=== PATIENT | female | born 1990 | race Caucasian/White ===

== ENCOUNTER 2019-01-26 16:56 | Emergency (ER) ==
[2019-01-26 17:21] VITALS: BP 122/58; TEMP 97.6; BMI 18.0
--- NOTE | 2019-01-26 17:39 | ED.PDOC ---
General Stated Complaint: Abdominal pain with repeated vomiting. Onset this am. Has had 6 episodes of emesis since onset without diarrhea. Indicating pain in in RUQ going through to back. Prev Tibal ligation . Additonal hx reveals patient has some type of hypercoagulable state. During her 2 previous 's developed acute Pulmonary Embolus in [id number] occuring during her . Supposed to be on coumadin but since moving to [place] from [place] has not established with PCP. (In addition states her children removed from her home due to her recurrent illness and advised she needed to seek medical care to stabilize her condition.) States her daughter has Sickle Cell illness believe transmitted from genetically from [place] father. Time Seen by Physician: 17:15 Mode of Arrival: Stretcher Information Source: Patient, EMT Exam Limitations: Clinical condition Seen Within Last 72 Hours for Same Complaint By: ED Nursing and Triage Documentation Reviewed and Agree: Yes Does patient meet sepsis criteria?: No <CLEMENTE ZULUAGA - Last Filed: 01/26/19 19:06> System Inflammatory Response Syndrome: Not Applicable <NASEEM BLEVINS - Last Filed: 01/26/19 20:26> ED Provider: Dr. NASEEM BLEVINS Chief Complaint: Abdominal Pain Sepsis Protocol: For patient's 13 years and over: Temp is 96.8 and below OR 101 and greater Pulse >90 BPM Resp >20/minute Acutely Altered Mental Status Are patient's symptoms suggestive of a new infection, such as: -Pneumonia -Skin, Soft Tissue -Endocarditis -UTI -Bone, Joint Infection -Implantable Device -Acute Abdominal Infection -Wound Infection -Meningitis -Blood Stream Catheter Infection -Unknown GI Complaint Exam - Abdominal Pain Complaint/Exam Onset: Sudden Duration: 20-30 min Symptoms Are: Still present Timing: Intermittent Initial Severity: Moderate Current Severity: Mild Location of Pain: Discrete, RUQ Radiates To: Reports: Back Character: Reports: Sharp, Burning Aggravating: Reports: Movement Alleviating: Reports: None Associated Signs and Symptoms: Reports: Nausea, Vomiting <CLEMENTE ZULUAGA - Last Filed: 01/26/19 19:06> Review of Systems - Review Of Systems Constitutional: Reports: No symptoms Eyes: Reports: No symptoms Ears, Nose, Mouth, Throat: Reports: No symptoms Respiratory: Reports: No symptoms Cardiac: Reports: No symptoms GI: Reports: Abdominal pain, Nausea, Vomiting. Denies: Diarrhea : Reports: No symptoms Musculoskeletal: Reports: No symptoms Skin: Reports: No symptoms Neurological: Reports: No symptoms Endocrine: Reports: No symptoms Hematologic/Lymphatic: Reports: No symptoms All Other Systems: Reviewed and Negative <NASEEM BLEVINS - Last Filed: 01/26/19 20:26> Past Medical History - Past Medical History Last Menstrual Period: last month - Social History Smoking Status: Never smoker Hx Substance Use: No Alcohol Screening: None <CLEMENTE ZULUAGA - Last Filed: 01/26/19 19:06> - Past Medical History Previously Healthy: Yes Endocrine: Reports: None Cardiovascular: Reports: None Respiratory: Reports: None Hematological: Reports: None Gastrointestinal: Reports: None Genitourinary: Reports: None Neuro/Psych: Reports: None Musculoskeletal: Reports: None Cancer: Reports: None Other Pertinent Past Medical History: PE x 2 - Surgical History General Surgical History: Reports: Tubal ligation - Family History Family History: Reports: None <NASEEM BLEVINS Last Filed: 01/26/19 20:26> Physical Exam - Physical Exam Appearance: Ill-appearing, Thin Ill-appearing: Mild Pain Distress: Moderate Eyes: CYNDY, EOMI, Conjunctiva clear Neck: Supple Skin: Warm, Dry Neurological: Alert, Oriented Psychiatric: Anxious <NASEEM BLEVINS Last Filed: 01/26/19 20:26> Interpretation - Radiology Interpretation Radiology Interpretation By: Radiologist Radiology Results: No acute changes (simple cyst, non obstructive stone.) Exam Interpreted: CT Scan <NASEEM BLEVINS Last Filed: 01/26/19 20:26> Re-Evaluation - Re-Evaluation Time of Re-Evaluation: 18:15 Status: Unchanged Vital Signs Stable: Yes Appearance: Other (writhing in pain RUQ/Midepigastrium) Lungs: Clear Skin: Warm and Dry Neuro: Alert and Oriented X3 CV: RRR <CLEMENTE ZULUAGA - Last Filed: 01/26/19 19:06> Physician Notification - Case Discussed Physician Notified: Dr Blevins-discussed case-assumes management Time of Notification: 19:00 <CLEMENTE ZULUAGA - Last Filed: 01/26/19 19:06> Critical Care Note - Critical Care Note Total Time (mins): 30 <NASEEM BLEVINS Last Filed: 01/26/19 20:26> Course - Course Hematology/Chemistry: 01/26/19 18:01 01/26/19 18:01 <CLEMENTE ZULUAGA - Last Filed: 01/26/19 19:06> - Course Hematology/Chemistry: 01/26/19 18:01 01/26/19 18:01 <NASEEM BLEVINS - Last Filed: 01/26/19 20:26> - Course Orders, Labs, Meds: Lab Review 01/26/19 01/26/19 01/26/19 18:01 18:01 18:01 WBC RBC Hgb Hct MCV MCH MCHC RDW Coeff of Cheryl Plt Count Immature Gran % (Auto) Neut % (Auto) Lymph % (Auto) [place] % (Auto) Eos % (Auto) Baso % (Auto) Immature Gran # (Auto) Neut # (Auto) Lymph # (Auto) [place] # (Auto) Eos # (Auto) Baso # (Auto) D-Dimer (Manual) 497.42 Sodium 142.8 Potassium 3.79 Chloride 106.0 Carbon Dioxide 17.7 L Anion Gap 22.89 BUN 8.4 Creatinine 0.60 Estimated GFR (MDRD) 119.00 BUN/Creatinine Ratio 14.00 Glucose 110.7 H Calcium 10.31 H Total Bilirubin 0.66 AST 24.2 ALT 15.3 Alkaline Phosphatase 91.7 Troponin I < 0.012 Total Protein 9.48 H Albumin 5.28 H Globulin 4.20 Albumin/Globulin Ratio 1.25 Lipase 31.4 Procalcitonin < 0.05 Serum , Qual 01/26/19 01/26/19 18:01 18:01 WBC 8.50 RBC 4.89 Hgb 13.8 Hct 42.8 MCV 87.5 MCH 28.2 MCHC 32.2 RDW Coeff of Cheryl 12.9 Plt Count 236 Immature Gran % (Auto) 0.5 Neut % (Auto) 85.6 Lymph % (Auto) 10.6 [place] % (Auto) 3.1 Eos % (Auto) 0.0 Baso % (Auto) 0.2 Immature Gran # (Auto) 0.0 Neut # (Auto) 7.3 H Lymph # (Auto) 0.9 [place] # (Auto) 0.3 L Eos # (Auto) 0.0 Baso # (Auto) 0.0 D-Dimer (Manual) Sodium Potassium Chloride Carbon Dioxide Anion Gap BUN Creatinine Estimated GFR (MDRD) BUN/Creatinine Ratio Glucose Calcium Total Bilirubin AST ALT Alkaline Phosphatase Troponin I Total Protein Albumin Globulin Albumin/Globulin Ratio Lipase Procalcitonin Serum , Qual Negative Orders Category Date Time Status IV [ED IV/MEDIPORT/POWERPORT] .ONCE EMERGENCY 01/26/19 17:44 Active CBC W/ AUTO DIFF Stat LAB 01/26/19 18:01 Completed CMP [COMPREHENSIVE METABOLIC PANEL] Stat LAB 01/26/19 18:01 Completed D-DIMER Stat LAB 01/26/19 18:01 Completed HCG QUALITATIVE [SERUM ] Stat LAB 01/26/19 18:01 Completed LIPASE Stat LAB 01/26/19 18:01 Completed PROCALCITONIN Stat LAB 01/26/19 18:01 Completed PROTEIN C ANTIGEN Stat LAB 01/26/19 19:25 Received PROTEIN IMMUNOELECTROPHORESIS Stat LAB 01/26/19 19:25 Received PROTEIN S ANTIGEN Stat LAB 01/26/19 19:25 Received SICKLE CELL PREP Stat LAB 01/26/19 19:25 Received TROPONIN I Stat LAB 01/26/19 18:01 Completed UA [URINALYSIS C & S IF INDICATED] Stat LAB 01/26/19 17:43 Uncollected URINE DRUG SCREEN (RAPID FOR ED) [DRUG SCREEN, URINE, LAB 01/26/19 17:43 Uncollected RAPID] Stat 0.9 % Sodium Chloride [Saline Flush] MEDS 01/26/19 17:42 Ordered 1 syr IVF PRN PRN Famotidine Inj [Pepcid] MEDS 01/26/19 18:13 Discontinued 20 mg IVP ONCE STA Nalbuphine HCl [Nubain] MEDS 01/26/19 18:14 Discontinued 10 mg IM ONCE STA Ondansetron HCl/Pf [Zofran 4 mg/2 ml] MEDS 01/26/19 18:09 Discontinued 4 mg IVP ONCE STA Sodium Chloride 0.9% [Sodium Chloride] 1,000 ml MEDS 01/26/19 17:[address] ABDOMEN/PELVIS WO CONTRAST Stat RADS 01/26/19 17:47 Completed Medications Generic Name Dose Route Start Last Admin Trade Name Freq PRN Reason Stop Dose Admin Sodium Chloride 1 syr 01/26/19 17:42 Saline Flush IVF PRN PRN To flush IV Discontinued Medications Generic Name Dose Route Start Last Admin Trade Name Freq PRN Reason Stop Dose Admin Famotidine 20 mg 01/26/19 18:13 01/26/19 18:24 Pepcid IVP 01/26/19 18:14 20 mg ONCE STA Administration Sodium Chloride 1,000 mls @ 500 mls/hr 01/26/19 17:45 01/26/19 18:10 Sodium Chloride IV 01/26/19 19:44 500 mls/hr BOLUS STA Administration Nalbuphine HCl 10 mg 01/26/19 18:14 01/26/19 18:27 Nubain IM 01/26/19 18:15 10 mg ONCE STA Administration Ondansetron HCl 4 mg 01/26/19 18:09 01/26/19 18:10 Zofran 4 Mg/2 Ml IVP 01/26/19 18:10 4 mg ONCE STA Administration Vital Signs: Temp Pulse Resp BP Pulse Ox 01/26/19 16:59 97.6 F 61 20 122/58 L 99 Departure <CLEMENTE ZULUAGA - Last Filed: 01/26/19 19:06> - Departure Time of Disposition: 20:24 Pt referred to PMD for follow-up: Yes IPMP verified?: No Disposition Discussed With: Patient, Family <NASEEM BLEVINS - Last Filed: 01/26/19 20:26> - Departure Disposition: HOME SELF-CARE Discharge Problem: Abdominal pain Cyclical vomiting with nausea Qualifiers: Vomiting Intractability: intractable Qualified Code(s): G43.A1 - Cyclical vomiting, intractable Instructions: Acute Abdominal Pain (ED), Cyclic Vomiting Syndrome (ED) Condition: Stable Additional Instructions: Push fluids Avoid Marijuana use as it may cause vomiting. Take Bentyl for cramps and zofran as needed for nausea and vomiting. Prescriptions: Dicyclomine HCl [Bentyl] 10 mg PO TID PRN #20 capsule PRN Reason: Abdominal Pain Ondansetron [Zofran Odt] 4 mg PO Q8H #12 tab.rapdis Allergies/Adverse Reactions: Allergies No Known Allergies Allergy (Unverified 01/26/19 17:08) Home Medications: Ambulatory Orders Dicyclomine HCl [Bentyl] 10 mg PO TID PRN #20 capsule 01/26/19 Ondansetron [Zofran Odt] 4 mg PO Q8H #12 tab.rapdis 01/26/19
[2019-01-26] MEDS ORDERED: SODIUM CHLORIDE 1,000 ML IV STA (17:45)
[2019-01-26] MEDS ORDERED: ZOFRAN 4 MG/2 ML IVP STA (18:09)
[2019-01-26] MEDS ORDERED: NUBAIN IM STA (18:14)
[2019-01-26] MEDS: PEPCID IVP STA ×2 (18:24→18:27)
--- NOTE | 2019-01-26 19:22 | CT ---
EXAM: CT of the abdomen and pelvis without contrast. HISTORY: Abdominal pain with nausea vomiting. PROCEDURE: Contiguous axial CT images of the abdomen and pelvis without contrast with coronal and sa gittal reformats. FINDINGS: The exam is limited without IV contrast. The liver, gallbladder, pancreas, spleen and adre nal glands are normal in appearance. There are nonobstructive calcifications in both kidneys measuri ng up to 3 mm. No hydronephrosis. The ureters are incompletely visualized. The abdominal aorta is normal in appearance. The visualized loops of bowel and appendix are normal in appearance. No free fluid or free air in the abdomen or pelvis. The bladder is adequately filled and normal in appearanc e. The uterus is unremarkable. There is a 2.3 cm fluid density cyst in the right adnexa. The bones and soft tissues are unremarkable. Impression: Nonobstructive bilateral nephrolithiasis as described. The ureters are incompletely vis ualized and a nonobstructive ureterolith cannot be excluded. 2.3 cm simple right adnexal cyst.
== END 2019-01-26 20:10 | disposition home or self-care (01) ==
LOC: ED 16:56
DX: G43.A1 Cyclical vomiting, in migraine, intractable (principal); R10.11 Right upper quadrant pain
CPT/HCPCS: 36415; 80053; 83690; 84145; 84484; 84703; 85025; 85302; 85305; 85306; 85379; 85660; 86320; 96361; 96372; 96374; 96375; 99284